=== PATIENT | male | born 1985 | race Caucasian/White ===

== ENCOUNTER 2018-09-22 12:37 | Emergency (ER) | payer OTHER ==
[~2018-09-22] VITALS: Ht 182.9 cm; Wt 86.2 kg
[2018-09-22 13:06] VITALS: Ht 182.9 cm; Wt 86.2 kg
[2018-09-22 15:34] VITALS: BP 120/70
== END 2018-09-22 15:34 | disposition home or self-care (01) ==
LOC: ED 12:37
DX: M25.531 Pain in right wrist (principal); G56.31 Lesion of radial nerve, right upper limb; J45.909 Unspecified asthma, uncomplicated; E11.9 Type 2 diabetes mellitus without complications; W01.0XXA Fall on same level from slipping, tripping and stumbling without subsequent striking against object, initial encounter; Y93.89 Activity, other specified; Y92.89 Other specified places as the place of occurrence of the external cause; Y99.8 Other external cause status